=== PATIENT | male | born 1985 | race Caucasian/White ===

== ENCOUNTER 2017-11-04 15:52 | Emergency (ER) | payer SELFPAY ==
[2017-11-04] MEDS ORDERED: Sodium Chloride 0.9% 2.5 ML Syringe FLUSH PRN (16:02)
[2017-11-04] MEDS ORDERED: Sodium Chloride 0.9% 10 ML Syringe FLUSH PRN (16:02)
--- NOTE | 2017-11-04 16:07 | EDM.PDOC ---
ED HPI GENERAL MEDICAL PROBLEM - General Chief Complaint: Neuro Symptoms/Deficits Stated Complaint: AMB Time Seen by Provider: 11/04/17 16:04 Source of Information: Reports: Patient, EMS History Limitations: Reports: No Limitations - History of Present Illness INITIAL COMMENTS - FREE TEXT/NARRATIVE: HISTORY AND PHYSICAL: []32-year-old male presented by EMS due to near-syncopal episode and suspected tonic clonic seizure History of Present Illness: []Patient was on a job site and going down some stairs run into one of his coworkers and his thumb old having a seizure-like activity. Sudden happened about 15 minutes prior to arrival in the emergency room. Patient is not postictal. Patient states that he had similar instances when he was a child presumably when laying on his back. Review of Systems: As per history of present illness and below otherwise all systems reviewed and negative. Past medical history: As per history of present illness and as reviewed below otherwise noncontributory. Surgical history: As per history of present illness and as reviewed below otherwise noncontributory. Social history: No reported history of drug or alcohol abuse. Family history: As per history of present illness and as reviewed below otherwise noncontributory. Physical exam: Alert gentleman who is physically shaking but alert oriented speaking well without shortness of breath HEENT: Atraumatic, normocehpalic, pupils reactive, negative for conjunctival pallor or scleral icterus, mucous membranes moist, throat clear, neck supple, nontender, trachea midline. No nystagmus Lungs: Clear to auscultation, breath sounds equal bilaterally, chest non tender. Heart: S1S2, regular, negative for clicks, rubs, or JVD. Abdomen: Soft, nondistended, nontender. Negative for masses or hepatossplenmegaly. Negative for costovertebral tenderness. Pelvis: Stable nontender. Genitourinary: Deferred. Rectal: Deferred Extremities: Atraumatic, negative for cords or calf pain. Neurovascular unremarkable. Neuro: Awake, alert, oriented. Cranial nerves II through XII unremarkable. Cerebellum unremarkable. Motor and sensory unremarkable throughout. Exam nonfocal. Discussed with the patient his negative examination and laboratory values. Elevation in AST and ALP would indicate some liver compromise and he does admit that he is a heavy drinker. Last drink was about 2:00 this morning. Diagnostics: [CBC CMP amylase lipase EKG chest x-ray head CT without contrast] Therapeutics: []IV fluids Impression: [Near syncopal episode] Plan: [Discharged to home Follow up with neurologist in [place] referral made to Dr. Waqar Hardy recommended that you stop the excessive drinking and attend AA] Definitive disposition and diagnosis as appropriate pending reevaluation and review of above. Onset: Today, Sudden Duration: Minutes: Location: Reports: Generalized Severity: Moderate Improves with: Reports: None Worsens with: Reports: None Generalized Pain Score (Numeric/FACES): 2 - Related Data Allergies Allergy/AdvReac Type Severity Reaction Status Date / Time No Known Allergies Allergy Verified 11/04/17 16:00 Home Meds: Home Meds . [No Known Home Meds] 11/04/17 [History] ED ROS GENERAL - Review of Systems Review Of Systems: ROS reveals no pertinent complaints other than HPI. ED EXAM, NEURO - Physical Exam Exam: See Below (see dictation) Course - Vital Signs Last Recorded V/S: Last Vital Signs Temp 36.8 C 11/04/17 16:00 Pulse 93 11/04/17 16:00 Resp 18 11/04/17 16:00 BP 136/82 11/04/17 16:00 Pulse Ox 97 11/04/17 16:00 - Orders/Labs/Meds Orders: Active Orders 24 hr Category Date Time Status EKG Documentation Completion [RC] STAT Care 11/04/17 16:02 Active Chest 1V Frontal [CR] Stat Exams 11/04/17 16:03 Taken Head wo Cont [CT] Stat Exams 11/04/17 16:03 Taken UA W/MICROSCOPIC [URIN] Stat Lab 11/04/17 16:03 Ordered Sodium Chloride 0.9% [Saline Flush] Med 11/04/17 16:02 Active 10 ml FLUSH ASDIRECTED PRN Sodium Chloride 0.9% [Saline Flush] Med 11/04/17 16:02 Active 2.5 ml FLUSH ASDIRECTED PRN Saline Lock Insert [OM.PC] Stat Oth 11/04/17 16:02 Ordered Medication Orders Sodium Chloride (Saline Flush) 10 ml FLUSH ASDIRECTED PRN PRN Reason: Keep Vein Open Sodium Chloride (Saline Flush) 2.5 ml FLUSH ASDIRECTED PRN PRN Reason: Keep Vein Open Labs: Laboratory Tests 11/04/17 11/04/17 11/04/17 Range/Units 16:18 16:18 16:18 WBC 7.08 (4.0-11.0) K/uL RBC 3.86 L (4.50-5.90) M/uL Hgb 13.2 (13.0-17.0) g/dL Hct 37.5 L (38.0-50.0) % MCV 97.2 (80.0-98.0) fL MCH 34.2 H (27.0-32.0) pg MCHC 35.2 (31.0-37.0) g/dL RDW Std Deviation 45.6 (28.0-62.0) fl RDW Coeff of Cydney 13 (11.0-15.0) % Plt Count 55 L (150-400) K/uL MPV 10.20 (7.40-12.00) fL Neut % (Auto) 78.8 (48.0-80.0) % Lymph % (Auto) 10.2 L (16.0-40.0) % Pine % (Auto) 10.5 (0.0-15.0) % Eos % (Auto) 0.1 (0.0-7.0) % Baso % (Auto) 0.4 (0.0-1.5) % Neut # (Auto) 5.6 (1.4-5.7) K/uL Lymph # (Auto) 0.7 (0.6-2.4) K/uL Pine # (Auto) 0.7 (0.0-0.8) K/uL Eos # (Auto) 0.0 (0.0-0.7) K/uL Baso # (Auto) 0.0 (0.0-0.1) K/uL Nucleated RBC % 0.0 /100WBC Nucleated RBCs # 0 K/uL INR 0.94 Sodium 139 (136-148) mmol/L Potassium 3.9 (3.5-5.1) mmol/L Chloride 102 (98-107) mmol/L Carbon Dioxide 23.2 (21.0-32.0) mmol/L BUN 10 (7.0-18.0) mg/dL Creatinine 0.9 (0.8-1.3) mg/dL Est Cr Clr Drug Dosing 124.74 mL/min Estimated GFR (MDRD) > 60.0 ml/min Glucose 86 (74-106) mg/dL Calcium 8.8 (8.5-10.1) mg/dL Total Bilirubin 0.7 (0.2-1.0) mg/dL AST 171 H (15-37) IU/L ALT 113 H (14-63) IU/L Alkaline Phosphatase 100 (46-116) U/L Total Protein 6.7 (6.4-8.2) g/dL Albumin 3.6 (3.4-5.0) g/dL Globulin 3.1 (2.0-3.5) g/dL Albumin/Globulin Ratio 1.2 L (1.3-2.8) TSH 3rd Generation 1.09 (0.36-3.74) uIU/mL Salicylates 3.3 (0-20) mg/dL Meds: Medications Generic Name Dose Route Start Last Admin Trade Name Freq PRN Reason Stop Dose Admin Sodium Chloride 10 ml 11/04/17 16:02 Saline Flush FLUSH ASDIRECTED PRN Keep Vein Open Sodium Chloride 2.5 ml 11/04/17 16:02 Saline Flush FLUSH ASDIRECTED PRN Keep Vein Open Departure - Departure Time of Disposition: 17:55 Disposition: Home, Self-Care 01 Condition: Good Clinical Impression: Near syncope - Discharge Information Instructions: Near-Syncope, [id number] Referrals: PCP,None [Primary Care Provider] - Forms: ED Department Discharge Additional Instructions: The following information is given to patients seen in the emergency department who are being discharged to home. This information is to outline your options for follow-up care. We provide all patients seen in our emergency department with a follow-up referral. The need for follow-up, as well as the timing and circumstances, are variable depending upon the specifics of your emergency department visit. If you don't have a primary care physician on staff, we will provide you with a referral. We always advise you to contact your personal physician following an emergency department visit to inform them of the circumstance of the visit and for follow-up with them and/or the need for any referrals to a consulting specialist. The emergency department will also refer you to a specialist when appropriate. This referral assures that you have the opportunity for followup care with a specialist. All of these measure are taken in an effort to provide you with optimal care, which includes your followup. Under all circumstances we always encourage you to contact your private physician who remains a resource for coordinating your care. When calling for followup care, please make the office aware that this follow-up is from your recent emergency room visit. If for any reason you are refused follow-up, please contact the [facility] emergency department at and asked to speak to the emergency department charge nurse. You were found to have a near syncopal episode Recommended that you follow-up with neurology In [place] Dr. Steele or Dr. DALEY Phone number [phone] Recommended that you decrease your drinking his liver enzymes are elevated Follow up with your primary care for this concern - My Orders Last 24 Hours: My Active Orders 11/04/17 16:02 EKG Documentation Completion [RC] STAT Sodium Chloride 0.9% [Saline Flush] 10 ml FLUSH ASDIRECTED PRN Sodium Chloride 0.9% [Saline Flush] 2.5 ml FLUSH ASDIRECTED PRN Saline Lock Insert [OM.PC] Stat 11/04/17 16:03 Chest 1V Frontal [CR] Stat Head wo Cont [CT] Stat UA W/MICROSCOPIC [URIN] Stat - Assessment/Plan Last 24 Hours: My Active Orders 11/04/17 16:02 EKG Documentation Completion [RC] STAT Sodium Chloride 0.9% [Saline Flush] 10 ml FLUSH ASDIRECTED PRN Sodium Chloride 0.9% [Saline Flush] 2.5 ml FLUSH ASDIRECTED PRN Saline Lock Insert [OM.PC] Stat 11/04/17 16:03 Chest 1V Frontal [CR] Stat Head wo Cont [CT] Stat UA W/MICROSCOPIC [URIN] Stat
[2017-11-04 17:05] LABS: CHLORIDE,CL 102 mmol/L (98-107); SODIUM,NA 139 mmol/L (136-148)
--- NOTE | 2017-11-05 10:16 | CR ---
EXAM DATE: 11/04/17 PATIENT'S AGE: 32 Patient: MITUL BUTCHER Facility: [place], [place] Site . Site : 1985 Study: XRay Chest [id number]/20/2018 5:03:41 PM Ordering Physician: Doctor Kennedy Final Report: HISTORY: Seizure, fall. FINDINGS: AP portable chest radiograph demonstrates EKG leads overlying the thorax. The cardiac silhouette is normal. Pulmonary vasculature and mohan are normal. No consolidation or pleural effusion is seen. Bony structures are within normal limits. IMPRESSION: No acute cardiopulmonary disease. Dictated by Enriqueta Vega MD @ 11/04/2017 5:27:28 PM Dictated by: Enriqueta Vega MD @ 11/04/2017 17:27:34 (Electronic Signature) Report Signed by Proxy. [email or web address]
--- NOTE | 2017-11-06 10:11 | CT ---
EXAM DATE: 11/04/17 PATIENT'S AGE: 32 Patient: MITUL BUTCHER Facility: [facility] Site . Site : 1985 Study: CT-Head [id number]/20/2018 5:02:50 PM Ordering Physician: Doctor Kennedy Final Report: HISTORY: Possible seizure. No prior history. TECHNIQUE: The head was scanned in the axial plane at 3 mm intervals without IV contrast. Reconstructed bone windows were obtained as well as sagittal and coronal reconstructions. FINDINGS: The visualized paranasal sinuses and mastoid air cells are well aerated. The calvarium is intact. The ventricles and sulci are normal size, shape and position. No intra-axial mass, edema or midline shift is identified. No extra- axial fluid collections are seen. Rosario-white differentiation is preserved. IMPRESSION: No acute intracranial pathology or bleed. Dictated by Enriqueta Vega MD @ 11/04/2017 5:26:17 PM Prelim Report By Dr. Enriqueta Vega @ 11/04/2017 5:26:23 PM ADDENDUM Additional history: Fall Dictated by: Enriqueta Vega MD @ 11/04/2017 17:28:07 Signed by: Enriqueta Vega @ 11/04/2017 5:28:07 PM (Electronic Signature) ----ADDENDUM---- Signed by: Enriqueta Vega MD @11/06/2017 12:45:06 AM (Electronic Signature) Report Signed by Proxy. [facility]
== END 2017-11-04 18:08 | disposition home or self-care (01) ==
LOC: MW.ED 15:52
DX: R55 Syncope and collapse (principal)
CPT/HCPCS: 36415; 70450; 71045; 80053; 84443; 85025; 85610; 93005; 99285; G0480; 99283